=== PATIENT | male | born 1970 | race Caucasian/White ===

== ENCOUNTER → 2023-05-15 18:00 | Outpatient (REF) | payer OTHER, SELFPAY ==
--- NOTE | 2023-05-09 09:46 | PN.DIAED02 ---
Referral
DSME Class Series Code: [id number]
Referred For: Diabetes Self-Management Training
PHI Release Authorization Form Signed: Yes
Demographic
(1) Type 2 diabetes mellitus with hyperglycemia
Status: Acute Code(s): E11.65 - Type 2 diabetes mellitus with hyperglycemia
Patient's primary language-: Bermudian
Education: High school/GED
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
Hours Worked/Week: > 40 (65)
- Social
Primary Support Person: Family ( and 18 yr old daughter)
Primary Care Takers: Self
Living Arrangements: Family
- Learning Methods
Preferred Method: Hands-on demonstration, Video, Group discussion
Glycemic Control
- Blood Glucose Monitoring Assessment
Date: 05/09/23
Blood glucose monitoring at home: Yes
Monitor Brands: [employer] (Palmer 2)
Frequency: >4x per day
Time: fasting, before breakfast, after breakfast, before lunch, after lunch, before dinner, after dinner, bedtime
- Hemoglobin A1c
Date: 02/27/23
A1C Percentage (%): 9.7
Medical History of Diabetes
Previous Diabetes Education: No
Previous visit with Dietitian: No
Complications/Comorbidity/Specialist: Heart Disease (cath-2019), Neuropathy, Pulmonary disease, Retinopathy (l.eye)
Measures
- Anthropometrics
Height: 5 ft 9 in
Actual Weight: 346 lb 4 oz
- Blood Pressure / Pulse
Blood pressure: 118/64
- Diabetes Management
Medical Management for Diabetes: Complete physical exam (05/18/2018), Dental exam (03/20/2019)
Self-Care
- Tobacco Usage
Do you now, or have you ever smoked?: Never smoked
- Alcohol & Drugs Usage
Drinks Alcohol: Yes
Amount/day: Social Occasions (4 times/year)
Uses Recreational Drugs: No
- Meals & Dining
Meals & Dining: Patient skips meals: Yes (discussed), Food Intolerance / Allergy: No, Cultural / Jain Dietary Needs: No
Primary Food Blister Pack Operator: Spouse
Primary Shank Stitcher: Spouse
Dining Out Frequency: 1-3x per week (3)
- Physical Activity
Physical Limitation: No
Patient participates in physical Activity: No
- Patient-Self Assessment
Diabetes Knowledge: Fair
Feelings About Diabetes: Fear
General Health: Fair
Importance of Health: Extremely
Stress Level: Medium
Diabetes Interferes With:: Nothing
Depression Survey Score: 15
Care Plan
- Education Needs
Patient Education Needs: Diabetes disease process, Chronic complications, Acute complications, Medication, Monitoring, Physical activity, Psychosocial Adjustment, Nutritional management, Goal setting & problem solving
Recommended Diabetes Training Program based on assessment: Outpatient Diabetes Education Program
- Plan of Care
Plan of Care:
Dani with history T2Dm for 10-12 years, A1C 9.7% (02/27/23). Wearing a Freestyle Palmer 2-(current BS 170 mg/dl) for which he pays out of pocket. Current medications for DM include Glimepiride 4 mg BID and Metformin 1000 mg BID. He is due for both
dental and eye exam, and will make those appointments. Dani works long hours and weekends as well as travels for his job. Lives with his who he states is extremely obese, lies in bed with food and shows no interest in doing anything. He also
has an 18 yr old daughter whom suffers from anxiety, 'she's a handful'. He is a member of [employer] but hasn't gone, stating 'no time'. We discussed the importance of prioritizing his health, could he work less hours to allow for time to
exercise. He does believe his long hours are self induced, and is agreeable to start off going to [employer] before work one day a week as well as Monday before work. He started the process for gastric bypass surgery but his insurance denied.
Dr. Moctezuma has given him a few samples of Ozempic and he has lost 14#, unfortunately, the cost for him is $420/month which is cost prohibitive. Goals established and directions to classroom given. Phone number provided for follow up questions.
--- NOTE | 2023-05-09 11:08 | PN.DIAED04 ---
Education Record
- Education Record
Class Attended: Class 1 (pre registration 05/09/23 for outpt DSME classes starting 05/15/23)
DSME Class Series Code: [id number]
Instructor: Registered Nurse (Jennifer Cameron, RN, BSN, [facility])
Class Curriculum:
Outpatient Diabetes Education Program:
Class 5 (120 minutes)
Prevent, detect, and treat acute complications
Prevent, detect, and treat chronic complications through risk reduction
Develop personal strategies to address psychosocial issues and concerns
Development of diabetes self-management support plan
Letter to physician with DSMS plan attached sent
Class Length (mins): 120
Pre-Program Knowledge: Needs review / Assistance
Pre-Test Score (%): 68
Goals
- Goal 1
Being Active: Other (Use treadmill/stationary bike at [employer] for 30-6- minutes, 3-5 times per week)
Goals To Be Evaluated: Other
- Goal 2
Healthy Eating: Make better food choices, Follow meal plan, Reduce portion sizes
Goals To Be Evaluated: Make better food choices. Follow meal plan. Reduce portion sizes
- Goal 3
Monitoring: Follow monitoring schedule (Wearing Palmer, suggest FBS, ACHS and 2 hr pp every meal. )
Goals To Be Evaluated: Follow monitoring times
--- NOTE | 2023-05-09 11:41 | PN.DIAED04 ---
Education Record
- Education Record
Class Attended: Class 1 (pre registration 05/09/23 for DSME classes starting 05/15/23)
DSME Class Series Code: [id number]
Instructor: Registered Nurse (Jennifer Cameron, RN, BSN, [facility])
Class Curriculum:
Outpatient Diabetes Education Program:
Initial Assessment (45 minutes)
Individualized assessment
Develop personal strategies to promote health and behavior change
Development of diabetes self-management support plan
Class Length (mins): 60
Pre-Program Knowledge: Needs review / Assistance
Pre-Test Score (%): 68
Goals
- Goal 1
Being Active: Exercise more often (Goal is to use treadmill/stationary bike at [employer] for 30-60 minutes, 3 days a week)
Goals To Be Evaluated: Exercise more often
- Goal 2
Healthy Eating: Make better food choices, Follow meal plan, Reduce portion sizes
Goals To Be Evaluated: Make better food choices. Follow meal plan. Reduce portion sizes
- Goal 3
Monitoring: Follow monitoring schedule (Scan Palmer 2 ACHS, 2 hr pp and random as needed)
Goals To Be Evaluated: Follow monitoring times
--- NOTE | 2023-05-16 14:21 | PN.DIAED04 ---
Education Record
- Education Record
Class Attended: Class 1
DSME Class Series Code: [id number]
Instructor: Registered Nurse (Jennifer Cameron, RN, BSN, CDE)
Class Length (mins): 120
Post-Class 1 Test Score (%): 100
--- NOTE | 2023-05-16 14:21 | PN.DIAED14 ---
This is to notify you that your patient with diabetes, GARY LOWRY ( 1970), has enrolled in our diabetes self-management classes that are being held at [facility].
These classes will include an introduction to diabetes, diet, medication, exercise and prevention of complications. At the end of our class series, you will receive a report of your patient's participation and progress for your records.
Please contact me at the [facility], , if there is any particular information regarding your patient that might be helpful to me.
Sincerely,
--- NOTE | 2023-05-22 14:19 | PN.DIAED06 ---
Meal Plans - Regular
- Meal Plan
Diabetic Meal Plan Name: 2400 calories
Breakfast - Total Carbohydrate (grams): 60
Breakfast - Starch Carbohydrate: 0
Breakfast - Fruit Carbohydrate: 0
Breakfast - Milk Carbohydrate: 0
Breakfast - Nonstarchy Vegetables: Yes
Breakfast - Meat/Protein: 1
Breakfast - Fat: 2
Morning Snack - Total Carbohydrate (grams): 30
Morning Snack - Starch Carbohydrate: 0
Morning Snack - Fruit Carbohydrate: 0
Morning Snack - Milk Carbohydrate: 0
Morning Snack - Nonstarchy Vegetables: Yes
Morning Snack - Meat/Protein: 1
Morning Snack - Fat: 0
Lunch - Total Carbohydrate (grams): 60
Lunch - Starch Carbohydrate: 0
Lunch - Fruit Carbohydrate: 0
Lunch - Milk Carbohydrate: 0
Lunch - Nonstarchy Vegetables: Yes
Lunch - Meat/Protein: 3
Lunch - Fat: 2
Afternoon Snack - Total Carbohydrate (grams): 30
Afternoon Snack - Starch Carbohydrate: 0
Afternoon Snack - Fruit Carbohydrate: 0
Afternoon Snack - Milk Carbohydrate: 0
Afternoon Snack - Nonstarchy Vegetables: Yes
Afternoon Snack - Meat/Protein: 0.5
Afternoon Snack - Fat: 0
Dinner - Total Carbohydrate (grams): 60
Dinner - Starch Carbohydrate: 0
Dinner - Fruit Carbohydrate: 0
Dinner - Milk Carbohydrate: 0
Dinner - Nonstarchy Vegetables: Yes
Dinner - Meat/Protein: 4
Dinner - Fat: 2
Evening Snack - Total Carbohydrate (grams): 15
Evening Snack - Starch Carbohydrate: 0
Evening Snack - Fruit Carbohydrate: 0
Evening Snack - Milk Carbohydrate: 0
Evening Snack - Nonstarchy Vegetables: Yes
Evening Snack - Meat/Protein: 0
Evening Snack - Fat: 0
== END ==
LOC: DES 18:00
PROVIDERS: ATTENDING PHYSICIAN Internal Medicine
DX: E11.65 Type 2 diabetes mellitus with hyperglycemia (principal)
CPT/HCPCS: 99078

== ENCOUNTER → 2023-05-22 18:00 | Outpatient (REF) | payer OTHER, SELFPAY ==
--- NOTE | 2023-05-23 08:49 | PN.DIAED04 ---
Education Record
- Education Record
Class Attended: Class 2
DSME Class Series Code: [id number]
Instructor: Registered Dietitian (Lety Hurley, RD, LDN, CDE)
Class Length (mins): 120
== END ==
LOC: DES 18:00
PROVIDERS: ATTENDING PHYSICIAN Internal Medicine
DX: E11.65 Type 2 diabetes mellitus with hyperglycemia (principal)
CPT/HCPCS: 99078

== ENCOUNTER → 2023-05-23 12:32 | Outpatient (REF) | payer OTHER, SELFPAY | LOC: RCS 12:32 | PROVIDERS: ATTENDING PHYSICIAN Nurse Practitioner; FAMILY PHYSICIAN Internal Medicine | DX: I50.32 Chronic diastolic (congestive) heart failure (principal); R07.89 Other chest pain; I10 Essential (primary) hypertension | CPT/HCPCS: 93307; Q9957 ==

== ENCOUNTER → 2023-05-29 12:00 | Outpatient (REF) | payer OTHER, SELFPAY ==
--- NOTE | 2023-06-05 11:10 | PN.DIAED04 ---
Education Record
- Education Record
Class Attended: Class 3
DSME Class Series Code: [id number]
Instructor: Registered Dietitian (Lety Hurley, RD, LDN, CDE)
Class Length (mins): 120
Post-Class 2 & 3 Test Score (%): 100
== END ==
LOC: DES 12:00
PROVIDERS: ATTENDING PHYSICIAN Internal Medicine
DX: E11.65 Type 2 diabetes mellitus with hyperglycemia (principal)
CPT/HCPCS: 99078

== ENCOUNTER → 2023-06-05 18:00 | Outpatient (REF) | payer OTHER, SELFPAY ==
--- NOTE | 2023-06-06 13:35 | PN.DIAED04 ---
Education Record
- Education Record
Class Attended: Class 4
DSME Class Series Code: [id number]
Instructor: Registered Nurse (Jennifer Cameron, RN, BSN, CDE)
Class Length (mins): 120
Post-Class 4 Test Score (%): 100
== END ==
LOC: DES 18:00
PROVIDERS: ATTENDING PHYSICIAN Internal Medicine
DX: E11.65 Type 2 diabetes mellitus with hyperglycemia (principal)
CPT/HCPCS: 99078

== ENCOUNTER → 2023-06-12 18:00 | Outpatient (REF) | payer OTHER, SELFPAY ==
--- NOTE | 2023-06-14 11:06 | PN.DIAED16 ---
This is to notify you that your patient with diabetes, GARY LOWRY ( 1970), has attended the entire series of Diabetes Self-Management Education Classes.
Class 1 (120 minutes): Diabetes Overview - monitoring, stress/psychosocial adjustment, support, goal setting
Class 2 (120 minutes): Meal Planning - serving sizes, menu plans
Class 3 (120 minutes): Introduction to Carbohydrate Counting, Analyzing Food Labels
Class 4 (120 minutes): Medication, Exercise and Activity
Class 5 (120 minutes): Sick Day Management, Strategies to Reduce Complications, Problem Solving, Resources
The following behavioral goals were identified:
Exercise more often
Make better food choices
Follow meal plan
Reduce portion sizes
Follow monitoring times
A follow-up call will be made within three to six months to evaluate attainment of these goals and to check post-program Hemoglobin A1c and overall progress. All class participants are encouraged to contact me if I can be any further assistance in
learning how to manage their diabetes.
Sincerely,
--- NOTE | 2023-06-15 12:59 | PN.DIAED04 ---
Education Record
- Education Record
Class Attended: Class 5
DSME Class Series Code: [id number]
Instructor: Registered Nurse (Jennifer Cameron, RN, BSN, [facility])
Class Length (mins): 120
Post-Program Knowledge: Demonstrates competency
Post-Test Score (%): 88
Post-Program Assessment
- Post-Program Assessment
Actual Weight: 337 lb 2 oz
Blood pressure: 125/81
Post-Program Depression Survey Score: 0
Reviewing Previous Goals?: Yes
Pre-Program Depression Survey Score: 15
- Goals 1 Evaluation
Goals To Be Evaluated: Exercise more often
- Goals 2 Evaluation
Goals To Be Evaluated: Make better food choices. Follow meal plan. Reduce portion sizes
- Goals 3 Evaluation
Goals To Be Evaluated: Follow monitoring times
== END ==
LOC: DES 18:00
PROVIDERS: ATTENDING PHYSICIAN Internal Medicine
DX: E11.65 Type 2 diabetes mellitus with hyperglycemia (principal)
CPT/HCPCS: 99078

== ENCOUNTER → 2024-05-01 15:53 | Outpatient (REF) | payer OTHER, SELFPAY | LOC: HWRAD 15:53 | PROVIDERS: ATTENDING PHYSICIAN Nurse Practitioner Family | DX: R09.89 Other specified symptoms and signs involving the circulatory and respiratory systems (principal); R05.1 Acute cough | CPT/HCPCS: 71046 ==